=== PATIENT | female | born 1950 | race Hispanic/Latino ===

== ENCOUNTER 2017-09-13 10:02 | Outpatient (CLI) | payer MEDICARE, OTHER | END 2017-09-13 10:03 | disposition home or self-care (01) | LOC: LABHHL 10:02 | PROVIDERS: ATTEND Surgery | DX: N60.02 Solitary cyst of left breast (principal) | CPT/HCPCS: 88305 ==

== ENCOUNTER 2017-09-25 09:40 | Outpatient (CLI) | payer MEDICARE ==
--- NOTE | 2017-09-25 13:27 | Ultrasound Report ---
VACUUM ASSISTED ULTRASOUND GUIDED NEEDLE CORE BIOPSY WITH CLIP PLACEMENT LEFT BREAST: 09/25/17 09:40:00 CLINICAL: Status post left ultrasound guided needle biopsy. The pathology is benign but there is a persistent mass ultrasound. COMPARISON :08/22/17 OPI ultrasound FINDINGS: The procedure was explained to the patient and informed consent was obtained. Ultrasound demonstrated a similar irregular hypoechoic mass at 3 o'clock approximately 2 cm from the nipple. The skin was prepped with Betadine and anesthetized with 1% lidocaine. Vacuum-assisted needle core biopsy was performed through a small dermatotomy using ultrasound guidance, 2% lidocaine with epinephrine for deep anesthesia and a 10-gauge Mammotome Elite biopsy probe. Multiple cores were obtained and placed in formalin. No apparent mass remains. A localizer clip was deployed at the site of the biopsy. Hemostasis was achieved with minimal pressure and a sterile dressing was applied. The patient tolerated the procedure well and there were no apparent complications. A two view mammogram demonstrated concordant clip placement. The new clip is slightly more cephalad and slightly more posterior than the clip from the previous biopsy. The patient left the department in good condition with instructions for wound care and follow up. IMPRESSION: Uncomplicated vacuum-assisted ultrasound core biopsy and clip placement left breast.
--- NOTE | 2017-09-25 13:39 | Mammography Report ---
LEFT DIGITAL DIAGNOSTIC MAMMOGRAM: 09/25/17 09:40:00 CLINICAL: For clip placement immediately status post ultrasound biopsy. COMPARISON:09/12/17 FINDINGS: A second biopsy clip is now identified at 3 o'clock approximately 2.5 cm from nipple. IMPRESSION: Concordant clip placement status post ultrasound biopsy. BI-RADS CATEGORY: 4A--Mildly Suspicious Pathology pending.
== END 2017-09-25 09:41 | disposition home or self-care (01) ==
LOC: SPVWC 09:40
PROVIDERS: ATTEND Surgery
DX: N60.12 Diffuse cystic mastopathy of left breast (principal); N61.0 Mastitis without abscess
CPT/HCPCS: 88305